=== PATIENT | male | born 1985 | race Caucasian/White ===

== ENCOUNTER 2017-08-18 11:02 | Emergency (ER) | payer MEDICAID ==
[~2017-08-18] VITALS: Ht 180.3 cm; Wt 73.0 kg
[2017-08-18 11:08] VITALS: Ht 180.3 cm; Wt 73.0 kg
[2017-08-18 12:13] LABS: ALBUMIN 3.9 g/dL (3.4-5.0); ALKALINE PHOSPHATASE 68 U/L (46-116); ALT/SGPT 21 U/L (16-63); AST/SGOT 39 U/L (15-37); BILIRUBIN TOTAL 0.56 mg/dL (0.20-1.00); CALCIUM 8.8 mg/dL (8.5-10.1); CARBON DIOXIDE 27.2 mmol/L (21-32); CHLORIDE SERUM 100 mmol/L (98-107); CHOLESTEROL 162 mg/dL (<200); GFR1 > 60 mL/min; GLUCOSE SERUM 105 mg/dL (74-106); POTASSIUM SERUM 4.2 mmol/L (3.5-5.1); SODIUM SERUM 137 mmol/L (136-145); TOTAL PROTEIN, SERUM 7.4 g/dL (6.4-8.2)
[2017-08-18 12:14] LABS: BASOPHIL % 0.1 % (0-2); PLATELET COUNT 385 x10^3mcL (130-400); RED CELL DISTRIBUTION WIDTH 12.8 % (11.5-14.5)
[2017-08-18 12:51] LABS: AMPHETAMINE QUAL UR NONE DETECTED (NEG <=1000)
[2017-08-18 14:14] LABS: TOTAL PROTEIN CSF 81 mg/dL (15-45)
[2017-08-18 14:20] LABS: COLOR CSF PINK
[2017-08-18 14:21] LABS: APPEARANCE CSF BLOODY; RBC CSF 28000 /cumm (0); VOLUME CSF 9.5 mL; WBC CSF 1 /cumm (0-5)
[2017-08-18 14:22] LABS: COLOR CSF PINK
[2017-08-18 14:23] LABS: APPEARANCE CSF BLOODY; RBC CSF 25250 /cumm (0); VOLUME CSF 9.5 mL; WBC CSF 1 /cumm (0-5)
[2017-08-18 14:33] VITALS: BP 127/91
== END 2017-08-18 14:33 | disposition short-term general hospital (02) ==
LOC: ED 11:02
PROVIDERS: Specialist
DX: I60.9 Nontraumatic subarachnoid hemorrhage, unspecified (principal); F20.9 Schizophrenia, unspecified
CPT/HCPCS: 36600; 83880; G0480; J0696; J2001; J2060; J7030; Q0092